=== PATIENT | male | born 1975 | race Caucasian/White ===

== ENCOUNTER 2019-01-31 03:44 | Inpatient (IN) | payer MEDICAID ==
[~2019-01-31] VITALS: Ht 172.7 cm; Wt 85.4 kg
[2019-01-31] VITALS (9 sets, daily range): BP systolic 94–143; BP diastolic 46–87
[2019-01-31] MEDS: normal saline 1000ml 1,000 ML IV SCH ×2 (01:30→10:13)
--- NOTE | 2019-01-31 04:00 | NUR ---
Received report from ED at [facility] nurse, EMILY Hanks. Reports that pt is a 43 year old Male who reported to ED with 10/10 substernal CP. Reports that patient received Zofran and Aspirin 325mg from the EMS and Zofran and Fentanyl in the ED. He was put on a Nitro drip and titrated to 75 mcg. Reports that Troponins done at 2058=0.18, 0115=0.83. He reports past medical hx includes: Hypothyroidism, Blood clots x3 to the Right leg and MN x2, 3 years ago and 5 years ago. Reports that patient has MAKAYLA peripheral IV, both 18G and in the Right AC and L AC. He reports that patient denies ETOH and street drugs but tested positive for THC and opiates but that the toxicology was completed after pt was administered Fentanyl. Reports that VS are stable at 101/60 and HR at 56.
--- NOTE | 2019-01-31 04:30 | NUR ---
Received a phone call from EMILY Ross from ED that the patient was enroute with EMS.
--- NOTE | 2019-01-31 05:05 | NUR ---
Patient arrived to the unit at 0505. Patient is in stable condition with BP of 105/60, HR WNL at 70. Patient is alert and oriented x4, and able to give detailed past medical history. He denies any family hx of cardiac problems with the exception of his Grandfather. Patient denies etoh or drug abuse but admits smoking since high school, quit 2 years ago. Patient reports that he is still nauseated and has 3-4/10 CP. Patient arrives of 75 mcg/min of Nitroglycerin drip. Assessment completed. Patient has strong peripheral pulses and brisk capillary refill this includes radial and pedal pulses. Lung sounds are clear and S1S2 heart sounds. NO skin problems. Patient reports no problems with urination and reports last BM on 01/30/2019. Patient admitted by Dr. Griffin. Will continue to monitor patient for duration of shift.
[2019-01-31] MEDS ORDERED: RIVA10TA PO ×2 (05:18→12:15)
[2019-01-31] MEDS ORDERED: LEVO50TA PO (05:21)
[2019-01-31] MEDS ORDERED: SYN0.088T PO (05:21)
[2019-01-31] MEDS ORDERED: acetaminophen 325mg tablet PO PRN ×2 (05:30→05:35)
[2019-01-31] MEDS ORDERED: normal saline 1000ml 1,000 ML IV SCH (05:34)
[2019-01-31] MEDS ORDERED: ondansetron/PF 4mg/2ml inj IV PRN (05:35)
[2019-01-31] MEDS ORDERED: heparin 10,000 units/1 ML INJ IV ONE (05:35)
[2019-01-31] MEDS ORDERED: morphine 2 MG/ML inj. syringe IV PRN ×2 (05:35)
[2019-01-31] MEDS ORDERED: heparin 10,000 units/1 ML INJ IV PRN (05:35)
[2019-01-31] MEDS ORDERED: HYDROcodone/acetaminophen 5mg/325mg tablet PO PRN (05:35)
[2019-01-31] MEDS ORDERED: magnesium hydroxide 30ml (MOM) UD suspension PO PRN (05:35)
[2019-01-31] MEDS ORDERED: nitroGLYCERIN 0.4mg SUBLingual tab SL PRN (05:35)
[2019-01-31] MEDS ORDERED: mag hydrox/Alum hydrox/simeth 30ml oral suspension PO PRN (05:35)
--- NOTE | 2019-01-31 06:00 | NUR ---
Problems reprioritized. Patient report given, questions answered & plan of care reviewed with EMILY Balbuena.
[2019-01-31 06:29] LABS: BASOPHILS % (AUTO) 0.6 % (0-1); EOSINOPHILS # (AUTO) 0.2 X10'3 (0-0.9); EOSINOPHILS % (AUTO) 2.1 % (0-6); HEMATOCRIT 36.7 % (42.0-52.0); HEMOGLOBIN 12.4 g/dl (14.0-17.9); LYMPHOCYTES # (AUTO) 2.4 X10'3 (1.1-4.8); LYMPHOCYTES % (AUTO) 29.6 % (21-51); MEAN CORPUSCULAR HEMOGLOBIN 30.7 PG (27.0-31.0); MEAN CORPUSCULAR HGB CONC 33.7 g/dL (33.0-36.5); MEAN PLATELET VOLUME 8.1 FL (7.4-10.4); MONOCYTES # (AUTO) 0.5 X10'3 (0-0.9); NEUTROPHILS # (AUTO) 5.1 X10'3 (1.8-7.7); NEUTROPHILS % (AUTO) 61.7 % (42-75); PLATELET COUNT 184 X10'3 (140-440); RED BLOOD COUNT 4.03 X10'6 (4.70-6.10); RED CELL DISTRIBUTION WIDTH 13.6 % (11.5-14.5); WHITE BLOOD COUNT 8.2 X10'3 (4.5-11.0)
[2019-01-31] MEDS ORDERED: nitroGLYCERIN-Tridil 50MG/D5W 250 ML IV SCH (06:50)
[2019-01-31 07:01] LABS: INR 1.1 INR; PARTIAL THROMBOPLASTIN TIME 25 SECONDS (22-32)
[2019-01-31] MEDS: aspirin 81mg tablet.DR PO SCH (07:20)
[2019-01-31] MEDS: atorvastatin 10mg tablet PO SCH (07:20)
[2019-01-31] MEDS: heparin 25,000 UNIT/250ml bag 250 ML IV SCH ×2 (07:24→14:50)
[2019-01-31 07:25] LABS: MAGNESIUM 2.3 MG/DL (1.5-2.4); PHOSPHORUS 3.2 MG/DL (2.3-4.5)
[2019-01-31 07:32] LABS: TROPONIN I 3.73 NG/ML (0.0-0.05)
[2019-01-31] MEDS ORDERED: metoprolol tartrate 25mg tablet PO SCH (08:00)
--- NOTE | 2019-01-31 08:27 | NUR ---
PAGER ID: [phone] MESSAGE: [phone]-[phone]. B/P up to after 250 bolus. Sree DIAZ [phone]
[2019-01-31] MEDS: tirofiban 5mg in NS 100mL 100 ML IV SCH ×3 (08:36→20:25)
[2019-01-31 09:24] LABS: ALANINE AMINOTRANSFERASE 26 U/L (12-78); ALBUMIN 3.4 G/DL (3.4-5.0); ALBUMIN/GLOBULIN RATIO 1.2 (1.1-1.5); ALKALINE PHOSPHATASE 62 IU/L (46-116); ANION GAP 6 (8-16); ASPARTATE AMINO TRANSFERASE 35 U/L (10-37); BILIRUBIN,TOTAL 1.1 MG/DL (0.1-1.0); BLOOD UREA NITROGEN 13 MG/DL (7-18); CALCIUM 8.7 MG/DL (8.5-10.1); CHLORIDE 106 MMOL/L (99-107); GLUCOSE 90 MG/DL (70-104); POTASSIUM 3.8 MMOL/L (3.5-5.1); SODIUM 139 MMOL/L (135-145); TOTAL CARBON DIOXIDE 27.3 MMOL/L (24-32); TOTAL PROTEIN 6.3 G/DL (6.4-8.2); eGFR 82 ML/MIN
--- NOTE | 2019-01-31 14:31 | NUR ---
PAGER ID: [phone] MESSAGE: Kathy Morel is up to 7.69. Sree DIAZ [phone]
[2019-01-31] MEDS ORDERED: midazolam 2 mg/2 ml injection ONE ×2 (15:28→16:10)
[2019-01-31] MEDS ORDERED: fentaNYL/PF 50MCG/1 ML 2ML syringe ONE ×2 (15:28→16:16)
[2019-01-31] MEDS ORDERED: LIDOcaine 1% (10mg/ml)w/preservative injection 20ml MDV ONE (15:28)
[2019-01-31] MEDS ORDERED: iohexol 350MG/ML 100ml bottle IV ONE ×2 (15:28→16:25)
--- NOTE | 2019-01-31 15:45 | NUR ---
pt. headed to cathlab
[2019-01-31] MEDS ORDERED: heparin 1,000unit/ml 10ml vial 10 ML ONE (16:20)
[2019-01-31] MEDS ORDERED: proCHLORperazine 10 MG/2 ml inj ONE (16:20)
[2019-01-31] MEDS ORDERED: ticagrelor 90mg tablet ONE (16:26)
--- NOTE | 2019-01-31 17:00 | NUR ---
Pt. back from cathlab. Right groin site looks good. Pt. does not have any complaints. Orders faxed.
[2019-01-31] MEDS ORDERED: HYDROcodone/acetaminophen 10/325mg tab PO PRN (17:30)
[2019-01-31] MEDS ORDERED: proCHLORperazine 10 MG/2 ml inj IV PRN (17:30)
--- NOTE | 2019-01-31 18:00 | NUR ---
Patient in room MED 308. I have received report from EMILY Balbuena and had the opportunity to ask questions and assume patient care.
--- NOTE | 2019-01-31 18:21 | NUR ---
Problems reprioritized. Patient report given, questions answered & plan of care reviewed with Judith DIAZ.
[2019-01-31 18:22] LABS: BASOPHILS # (AUTO) 0.1 X10'3 (0-0.2); BASOPHILS % (AUTO) 0.7 % (0-1); EOSINOPHILS # (AUTO) 0.3 X10'3 (0-0.9); EOSINOPHILS % (AUTO) 4.2 % (0-6); HEMATOCRIT 36.7 % (42.0-52.0); HEMOGLOBIN 12.5 g/dl (14.0-17.9); LYMPHOCYTES # (AUTO) 2.7 X10'3 (1.1-4.8); LYMPHOCYTES % (AUTO) 35.3 % (21-51); MEAN CORPUSCULAR HEMOGLOBIN 30.7 PG (27.0-31.0); MEAN CORPUSCULAR VOLUME 90.2 FL (78-98); MEAN PLATELET VOLUME 8.2 FL (7.4-10.4); MONOCYTES # (AUTO) 0.5 X10'3 (0-0.9); MONOCYTES % (AUTO) 6.8 % (2-12); NEUTROPHILS # (AUTO) 4.1 X10'3 (1.8-7.7); PLATELET COUNT 201 X10'3 (140-440); RED BLOOD COUNT 4.07 X10'6 (4.70-6.10); RED CELL DISTRIBUTION WIDTH 13.4 % (11.5-14.5); WHITE BLOOD COUNT 7.7 X10'3 (4.5-11.0)
--- NOTE | 2019-01-31 22:30 | NUR ---
Patient removed blood pressure cuff prior to completion of post op vitals. Vitals have remained stable.
[2019-02-01 00:15] VITALS: BP 94/58
[2019-02-01 02:00] VITALS: BP 116/80
--- NOTE | 2019-02-01 02:38 | NUR ---
Aggrastat drip d/c at 0230 per orders.
[2019-02-01] MEDS: tirofiban 5mg in NS 100mL 100 ML IV SCH ×2 (03:31→10:08)
[2019-02-01 05:30] LABS: BASOPHILS # (AUTO) 0.1 X10'3 (0-0.2); BASOPHILS % (AUTO) 0.8 % (0-1); EOSINOPHILS # (AUTO) 0.4 X10'3 (0-0.9); EOSINOPHILS % (AUTO) 4.8 % (0-6); LYMPHOCYTES # (AUTO) 2.6 X10'3 (1.1-4.8); LYMPHOCYTES % (AUTO) 32.9 % (21-51); MEAN CORPUSCULAR HEMOGLOBIN 30.8 PG (27.0-31.0); MEAN CORPUSCULAR HGB CONC 33.4 g/dL (33.0-36.5); MEAN PLATELET VOLUME 8.6 FL (7.4-10.4); MONOCYTES # (AUTO) 0.5 X10'3 (0-0.9); MONOCYTES % (AUTO) 6.3 % (2-12); NEUTROPHILS # (AUTO) 4.3 X10'3 (1.8-7.7); NEUTROPHILS % (AUTO) 55.2 % (42-75); PLATELET COUNT 201 X10'3 (140-440); RED BLOOD COUNT 4.23 X10'6 (4.70-6.10); RED CELL DISTRIBUTION WIDTH 13.9 % (11.5-14.5); WHITE BLOOD COUNT 7.9 X10'3 (4.5-11.0)
[2019-02-01] MEDS ORDERED: Potassium Cl inj 20 MEQ in normal saline 1000ml 1,000 ML IV SCH (05:34)
[2019-02-01 05:44] LABS: ALANINE AMINOTRANSFERASE 24 U/L (12-78); ALBUMIN 3.2 G/DL (3.4-5.0); ALKALINE PHOSPHATASE 64 IU/L (46-116); ANION GAP 8 (8-16); ASPARTATE AMINO TRANSFERASE 30 U/L (10-37); BLOOD UREA NITROGEN 12 MG/DL (7-18); BUN/CREATININE RATIO 11.4 (5.4-32.0); CALCIUM 8.6 MG/DL (8.5-10.1); CHLORIDE 107 MMOL/L (99-107); CHOL/HDL RATIO 4.4 (0.00-4.99); CHOLESTEROL 160 MG/DL (0-200); CREATININE 1.05 MG/DL (0.60-1.10); GLUCOSE 90 MG/DL (70-104); HDL CHOLESTEROL 36 MG/DL (35-60); LDL CHOLESTEROL 109 MG/DL (50-100); POTASSIUM 4.1 MMOL/L (3.5-5.1); SODIUM 140 MMOL/L (135-145); TOTAL CARBON DIOXIDE 24.9 MMOL/L (24-32); TOTAL PROTEIN 6.3 G/DL (6.4-8.2); TRIGLYCERIDES 89 MG/DL (20-135); eGFR 77 ML/MIN
[2019-02-01 06:00] VITALS: BP 120/84
--- NOTE | 2019-02-01 06:00 | NUR ---
Problems reprioritized. Patient report given, questions answered & plan of care reviewed with EMILY Henning.
[2019-02-01] MEDS: normal saline 1000ml 1,000 ML IV SCH (06:05)
[2019-02-01] MEDS: aspirin 81mg tablet.DR PO SCH (07:09)
[2019-02-01] MEDS: atorvastatin 10mg tablet PO SCH (07:10)
[2019-02-01] MEDS ORDERED: levoTHYROXINE 88mcg tablet PO SCH (07:30)
[2019-02-01] MEDS ORDERED: ticagrelor 90mg tablet PO SCH (08:00)
--- NOTE | 2019-02-01 10:26 | NUR ---
Paged Dr. Gil patient has a ride home "Re: Julius Copeland in 308. patient says he has a ride home whenever you put the order in. thank you, Milady BONNER [phone]"
[2019-02-01 11:00] VITALS: BP 136/78
[2019-02-01] MEDS ORDERED: TICA90TA PO (11:06)
[2019-02-01] MEDS ORDERED: RIVA20TA PO (11:06)
[2019-02-01] MEDS ORDERED: NITR0.4T51 SL (11:06)
[2019-02-01] MEDS ORDERED: ATOR20TA66 PO (11:06)
[2019-02-01] MEDS ORDERED: LISI2.5T2 PO (11:06)
[2019-02-01] MEDS ORDERED: ASPI-1071 PO (11:06)
[2019-02-01] MEDS ORDERED: lisinopril 2.5mg tablet PO SCH (11:10)
--- NOTE | 2019-02-01 11:30 | NUR ---
PROVIDED PATIENT WITH DISCHARGE INSTRUCTIONS WELL NEW PRESCRIPTION INFORMATION AND DIRECTIONS. PATIENT AWARE THAT HE NEEDS TO SCHEDULE A FOLLOW UP APPOINTMENT WITH DR. PIERRE WITHIN A WEEK AND THAT HE WILL CONTINUE ASPIRIN, BRILINTA, AND XARELTO FOR ONE MONTH THEN STOP ASPIRIN AND ONLY CONTINUE TO TAKE BRILINTA AND XARELTO. HE IS AWARE HE SHOULD NOT MISS DOSES OF MEDICATION UNLESS DIRECTED TO DO SO BY DR. PIERRE. IV REMOVED, CATHETER INTACT WITH MINIMAL BLEEDING PRESSURE HELD AT SITE CLEAN GAUZE APPLIED AND SECURED WITH TAPE. PATIENT AWAITING HIS RIDE TO GO HOME. ALL PRESCRIPTIONS CALLED INTO [facility]. PATIENT AMBULATED DOWNSTAIRS TO GO HOME VIA PRIVATE VEHICLE ALL BELONGINGS IN HAND INCLUDING COUPON FOR BRILINTA AND STENT ID CARD.
[2019-02-01 11:56] VITALS: BP_SYST 136
== END 2019-02-01 12:06 | disposition home or self-care (01) | DRG 174 ==
LOC: MED 3N 04:59
PROVIDERS: ADMIT Internal Medicine; ATTEND Internal Medicine
PROC: 4A023N7 Measurement of Cardiac Sampling and Pressure, Left Heart, Percutaneous Approach (ICD-10-PCS; principal; 2019-01-31)
PROC: 027034Z Dilation of Coronary Artery, One Artery with Drug-eluting Intraluminal Device, Percutaneous Approach (ICD-10-PCS; 2019-01-31)
PROC: B2111ZZ Fluoroscopy of Multiple Coronary Arteries using Low Osmolar Contrast (ICD-10-PCS; 2019-01-31)
PROC: B2151ZZ Fluoroscopy of Left Heart using Low Osmolar Contrast (ICD-10-PCS; 2019-01-31)
PROC: B41F1ZZ Fluoroscopy of Right Lower Extremity Arteries using Low Osmolar Contrast (ICD-10-PCS; 2019-01-31)
DX: I21.4 Non-ST elevation (NSTEMI) myocardial infarction (principal); E03.9 Hypothyroidism, unspecified; E78.5 Hyperlipidemia, unspecified; F12.90 Cannabis use, unspecified, uncomplicated; I25.10 Atherosclerotic heart disease of native coronary artery without angina pectoris; I95.2 Hypotension due to drugs; T46.3X5A Adverse effect of coronary vasodilators, initial encounter; T44.7X5A Adverse effect of beta-adrenoreceptor antagonists, initial encounter; R00.1 Bradycardia, unspecified; I25.2 Old myocardial infarction; Z79.82 Long term (current) use of aspirin; Z79.899 Other long term (current) drug therapy; Z79.01 Long term (current) use of anticoagulants; Z87.891 Personal history of nicotine dependence; Z86.718 Personal history of other venous thrombosis and embolism; Z82.49 Family history of ischemic heart disease and other diseases of the circulatory system; Y92.238 Other place in hospital as the place of occurrence of the external cause
CPT/HCPCS: 36415; 80053; 80061; 83735; 84100; 84484; 85025; 85610; 85730; 87070; 93005; 93306; 93458; 99152; 99153; A6257; C1769; C1874; C9606; G0378; J0780; J1644; J2001; J2250; J3010; J3246; J3480; J7030; Q9967

== ENCOUNTER 2021-10-02 16:38 | Inpatient (IN) | payer MEDICAID ==
[~2021-10-02] VITALS: Ht 172.7 cm; Wt 93.2 kg
[~2021-10-02 16:38] MED LIST: ASPI-1071 PO; ATOR20TA66 PO; LEVO50TA PO; LISI2.5T14 PO; NITR0.4T51 SL; RIVA20TA PO; TICA90TA PO
--- NOTE | 2021-10-02 16:54 | NUR ---
PT TRANSFER FROM [facility] REPORT RECIVED FROM EMS
[2021-10-02] MEDS ORDERED: magnesium 4gm in 100ml NS 100 ML IV PRN (17:40)
[2021-10-02] MEDS ORDERED: magnesium 2GM in 50ml NS 50 ML IV PRN (17:40)
[2021-10-02] MEDS: normal saline 1000ml 1,000 ML IV SCH (17:40)
[2021-10-02] MEDS ORDERED: magnesium Cl slow-release 64mg tablet PO PRN (17:40)
[2021-10-02] MEDS ORDERED: potassium CL 10mEq/100ml bag 100 ML IV PRN (17:40)
[2021-10-02] MEDS ORDERED: ondansetron/PF 4mg/2ml inj IV PRN (17:40)
[2021-10-02] MEDS ORDERED: acetaminophen 325mg tablet PO PRN (17:40)
[2021-10-02] MEDS ORDERED: potassium Cl 20 mEq SR tablet PO PRN ×2 (17:40)
[2021-10-02] MEDS ORDERED: heparin 10,000 units/1 ML INJ IV ONE (17:45)
[2021-10-02] MEDS: morphine 2 MG/ML inj. syringe IV PRN ×3 (17:51→22:39)
[2021-10-02] MEDS: heparin 25,000 UNIT/250ml bag 250 ML IV SCH (18:00)
[2021-10-02] MEDS ORDERED: RIVA20TA PO (18:04)
[2021-10-02 18:22] LABS: ALANINE AMINOTRANSFERASE 36 U/L (12-78); ALBUMIN 3.6 G/DL (3.4-5.0); ALKALINE PHOSPHATASE 77 IU/L (46-116); ANION GAP 12 (8-16); ASPARTATE AMINO TRANSFERASE 33 U/L (10-37); BILIRUBIN,TOTAL 0.5 MG/DL (0.1-1.0); BLOOD UREA NITROGEN 25 MG/DL (7-18); BUN/CREATININE RATIO 23.6 (5.4-32.0); CALCIUM 8.5 MG/DL (8.5-10.1); CHLORIDE 104 MMOL/L (99-107); CREATININE 1.06 MG/DL (0.60-1.10); GLUCOSE 115 MG/DL (70-104); MAGNESIUM 2.2 MG/DL (1.5-2.4); POTASSIUM 4.2 MMOL/L (3.5-5.1); SODIUM 140 MMOL/L (135-145); TOTAL CARBON DIOXIDE 23.7 MMOL/L (24-32); TOTAL PROTEIN 7.3 G/DL (6.4-8.2); eGFR 75 ML/MIN
[2021-10-02 18:23] LABS: BASOPHILS # (AUTO) 0.1 X10'3 (0-0.2); BASOPHILS % (AUTO) 0.7 % (0-1); EOSINOPHILS # (AUTO) 0.4 X10'3 (0-0.9); EOSINOPHILS % (AUTO) 4.6 % (0-6); HEMATOCRIT 39.8 % (42.0-52.0); HEMOGLOBIN 13.7 g/dl (14.0-17.9); LYMPHOCYTES # (AUTO) 2.9 X10'3 (1.1-4.8); LYMPHOCYTES % (AUTO) 37.2 % (21-51); MEAN CORPUSCULAR HEMOGLOBIN 30.9 PG (27.0-31.0); MEAN CORPUSCULAR HGB CONC 34.3 g/dL (33.0-36.5); MEAN CORPUSCULAR VOLUME 90.1 FL (78-98); MEAN PLATELET VOLUME 9.1 FL (7.4-10.4); MONOCYTES # (AUTO) 0.4 X10'3 (0-0.9); NEUTROPHILS # (AUTO) 4.2 X10'3 (1.8-7.7); NEUTROPHILS % (AUTO) 52.5 % (42-75); PLATELET COUNT 271 X10'3 (140-440); RED BLOOD COUNT 4.42 X10'6 (4.70-6.10); RED CELL DISTRIBUTION WIDTH 13.8 % (11.5-14.5); WHITE BLOOD COUNT 7.9 X10'3 (4.5-11.0)
[2021-10-02] MEDS: K and/or MAG REPLACEMENT MC SCH (20:00)
[2021-10-02 22:30] VITALS: BP 137/64
--- NOTE | 2021-10-03 00:03 | NUR ---
Patient's Cardiac PTT resulted at 57, therapeutic range. Will do continue with rate of 1200U/hr. Will order aTTP for 05:30.
--- NOTE | 2021-10-03 06:30 | NUR ---
Patient in room MED 315. I have received and had the opportunity to ask questions and assume patient care.
[2021-10-03 06:42] LABS: BASOPHILS % (AUTO) 0.6 % (0-1); EOSINOPHILS # (AUTO) 0.4 X10'3 (0-0.9); EOSINOPHILS % (AUTO) 4.4 % (0-6); HEMATOCRIT 39.1 % (42.0-52.0); HEMOGLOBIN 13.3 g/dl (14.0-17.9); LYMPHOCYTES # (AUTO) 2.2 X10'3 (1.1-4.8); LYMPHOCYTES % (AUTO) 25.7 % (21-51); MEAN CORPUSCULAR HGB CONC 33.9 g/dL (33.0-36.5); MEAN CORPUSCULAR VOLUME 91.4 FL (78-98); MEAN PLATELET VOLUME 8.7 FL (7.4-10.4); MONOCYTES # (AUTO) 0.6 X10'3 (0-0.9); MONOCYTES % (AUTO) 7.1 % (2-12); NEUTROPHILS # (AUTO) 5.4 X10'3 (1.8-7.7); NEUTROPHILS % (AUTO) 62.2 % (42-75); PLATELET COUNT 234 X10'3 (140-440); RED BLOOD COUNT 4.28 X10'6 (4.70-6.10); RED CELL DISTRIBUTION WIDTH 13.8 % (11.5-14.5); WHITE BLOOD COUNT 8.6 X10'3 (4.5-11.0)
[2021-10-03 06:55] LABS: ALBUMIN 3.3 G/DL (3.4-5.0); ANION GAP 8 (8-16); BLOOD UREA NITROGEN 19 MG/DL (7-18); BUN/CREATININE RATIO 18.3 (5.4-32.0); CALCIUM 8.9 MG/DL (8.5-10.1); CHLORIDE 104 MMOL/L (99-107); CHOL/HDL RATIO 6.5 (0.00-4.99); CHOLESTEROL 221 MG/DL (0-200); CREATININE 1.04 MG/DL (0.60-1.10); GLUCOSE 100 MG/DL (70-104); HDL CHOLESTEROL 34 MG/DL (35-60); LDL CHOLESTEROL 141 MG/DL (50-100); MAGNESIUM 2.3 MG/DL (1.5-2.4); POTASSIUM 3.8 MMOL/L (3.5-5.1); SODIUM 136 MMOL/L (135-145); TOTAL CARBON DIOXIDE 24.2 MMOL/L (24-32); TRIGLYCERIDES 199 MG/DL (20-135); eGFR 77 ML/MIN
[2021-10-03] MEDS: heparin 10,000 units/1 ML INJ IV PRN ×2 (07:21→23:41)
[2021-10-03] MEDS: morphine 2 MG/ML inj. syringe IV PRN ×2 (07:33→13:46)
[2021-10-03] MEDS: K and/or MAG REPLACEMENT MC SCH ×2 (08:00→19:34)
[2021-10-03] MEDS ORDERED: LEVO75TA7 PO (09:04)
[2021-10-03] MEDS ORDERED: ATOR40TA72 PO (09:04)
[2021-10-03 11:30] VITALS: BP 97/58
[2021-10-03] MEDS: HYDROcodone/acetaminophen 5mg/325mg tablet PO PRN (14:58)
[2021-10-03 15:00] VITALS: BP 117/77
[2021-10-03] MEDS: heparin 25,000 UNIT/250ml bag 250 ML IV SCH (16:11)
--- NOTE | 2021-10-03 18:45 | NUR ---
Problems reprioritized. Patient report given, questions answered & plan of care reviewed with PONCHO Marquez.
[2021-10-03 22:00] VITALS: BP 100/60
[2021-10-04] MEDS: morphine 2 MG/ML inj. syringe IV PRN ×3 (02:31→17:15)
[2021-10-04 06:00] VITALS: BP 121/82
[2021-10-04 07:47] LABS: BASOPHILS # (AUTO) 0.1 X10'3 (0-0.2); EOSINOPHILS # (AUTO) 0.5 X10'3 (0-0.9); EOSINOPHILS % (AUTO) 6.1 % (0-6); HEMATOCRIT 39.2 % (42.0-52.0); HEMOGLOBIN 13.3 g/dl (14.0-17.9); LYMPHOCYTES # (AUTO) 2.6 X10'3 (1.1-4.8); LYMPHOCYTES % (AUTO) 35.1 % (21-51); MEAN CORPUSCULAR HEMOGLOBIN 30.9 PG (27.0-31.0); MEAN PLATELET VOLUME 8.4 FL (7.4-10.4); MONOCYTES # (AUTO) 0.5 X10'3 (0-0.9); MONOCYTES % (AUTO) 6.1 % (2-12); NEUTROPHILS # (AUTO) 3.8 X10'3 (1.8-7.7); NEUTROPHILS % (AUTO) 51.7 % (42-75); PLATELET COUNT 254 X10'3 (140-440); RED BLOOD COUNT 4.31 X10'6 (4.70-6.10); RED CELL DISTRIBUTION WIDTH 13.9 % (11.5-14.5); WHITE BLOOD COUNT 7.4 X10'3 (4.5-11.0)
[2021-10-04] MEDS: levoTHYROXINE 75mcg tablet PO SCH (07:51)
[2021-10-04] MEDS: aspirin 81mg, enteric-coated 1 TAB TABLET.DR PO SCH (07:52)
[2021-10-04] MEDS: K and/or MAG REPLACEMENT MC SCH ×2 (08:00→20:00)
[2021-10-04 08:13] LABS: ALBUMIN 3.3 G/DL (3.4-5.0); ANION GAP 9 (8-16); BLOOD UREA NITROGEN 18 MG/DL (7-18); BUN/CREATININE RATIO 16.5 (5.4-32.0); CALCIUM 8.9 MG/DL (8.5-10.1); CHLORIDE 107 MMOL/L (99-107); CREATININE 1.09 MG/DL (0.60-1.10); GLUCOSE 92 MG/DL (70-104); MAGNESIUM 2.4 MG/DL (1.5-2.4); POTASSIUM 4.2 MMOL/L (3.5-5.1); SODIUM 141 MMOL/L (135-145); eGFR 73 ML/MIN
--- NOTE | 2021-10-04 10:05 | NUR ---
PAGER ID: [phone] MESSAGE: [id number] Julius KAMARA- states worsening chest pressure 03/21. Karmen [phone]
[2021-10-04 11:00] VITALS: BP 126/82
[2021-10-04] MEDS: isosorbide mononitrate 30mg tab.SR.24H PO SCH (11:11)
--- NOTE | 2021-10-04 11:27 | NUR ---
PAGER ID: [phone] MESSAGE: [id number] Julius Copeland- [facility] [phone]. Karmen [phone]
[2021-10-04] MEDS: heparin 25,000 UNIT/250ml bag 250 ML IV SCH ×2 (13:00→18:25)
--- NOTE | 2021-10-04 13:30 | NUR ---
PAGER ID: [phone] MESSAGE: [id number] Julius Copeland- Troponin 9395. Karmen [phone]
[2021-10-04] MEDS ORDERED: rivaroxaban 20mg tablet PO SCH (13:46)
--- NOTE | 2021-10-04 15:04 | NUR ---
PAGER ID: [phone] MESSAGE: [id number] Julius Copeland- Agreeable to stay. Karmen [phone]
[2021-10-04] MEDS: heparin 10,000 units/1 ML INJ IV PRN (17:12)
[2021-10-04] MEDS: normal saline 1000ml 1,000 ML IV SCH (17:40)
--- NOTE | 2021-10-04 17:53 | NUR ---
PAGER ID: [phone] MESSAGE: [id number] Julius Copeland- C/O increased chest pain unrelieved by morphine. No nitro on order. Karmen [phone]
--- NOTE | 2021-10-04 18:08 | NUR ---
Dr. Bedolla called back, order placed for Nitro SL
[2021-10-04] MEDS ORDERED: heparin 10,000 units/1 ML INJ IV ONE (18:25)
[2021-10-04] MEDS ORDERED: heparin 10,000 units/1 ML INJ IV PRN (18:25)
[2021-10-04 23:00] VITALS: BP 131/79
--- NOTE | 2021-10-04 23:55 | NUR ---
LM for Dr. Flood regarding critical lab value, troponin 3659, trending downward.
[2021-10-05] VITALS (14 sets, daily range): BP systolic 101–165; BP diastolic 58–89
[2021-10-05] MEDS: morphine 2 MG/ML inj. syringe IV PRN ×5 (00:22→22:28)
--- NOTE | 2021-10-05 01:43 | NUR ---
Heparin drip running at 1400U/hr at start of shift, Cardiac PTT resulted at 00:41 was 69, no hold or bolus indicated. Decreased infusion rate to 1300U/hr per protocol.
--- NOTE | 2021-10-05 07:06 | NUR ---
Patient in room MED 315. I have received report from René DIAZ and had the opportunity to ask questions and assume patient care.
[2021-10-05 07:31] LABS: BASOPHILS # (AUTO) 0.1 X10'3 (0-0.2); BASOPHILS % (AUTO) 0.8 % (0-1); EOSINOPHILS # (AUTO) 0.4 X10'3 (0-0.9); EOSINOPHILS % (AUTO) 5.6 % (0-6); HEMATOCRIT 38.5 % (42.0-52.0); HEMOGLOBIN 13.4 g/dl (14.0-17.9); LYMPHOCYTES # (AUTO) 2.6 X10'3 (1.1-4.8); LYMPHOCYTES % (AUTO) 33.1 % (21-51); MEAN CORPUSCULAR HEMOGLOBIN 31.2 PG (27.0-31.0); MEAN CORPUSCULAR HGB CONC 34.7 g/dL (33.0-36.5); MEAN CORPUSCULAR VOLUME 90.1 FL (78-98); MONOCYTES # (AUTO) 0.5 X10'3 (0-0.9); MONOCYTES % (AUTO) 5.9 % (2-12); NEUTROPHILS # (AUTO) 4.3 X10'3 (1.8-7.7); NEUTROPHILS % (AUTO) 54.6 % (42-75); PLATELET COUNT 259 X10'3 (140-440); RED BLOOD COUNT 4.28 X10'6 (4.70-6.10); RED CELL DISTRIBUTION WIDTH 13.7 % (11.5-14.5); WHITE BLOOD COUNT 7.8 X10'3 (4.5-11.0)
[2021-10-05] MEDS: aspirin 81mg, enteric-coated 1 TAB TABLET.DR PO SCH (08:00)
[2021-10-05] MEDS: K and/or MAG REPLACEMENT MC SCH ×2 (08:00→20:00)
[2021-10-05] MEDS: isosorbide mononitrate 30mg tab.SR.24H PO SCH (08:00)
[2021-10-05 08:01] LABS: ALBUMIN 3.4 G/DL (3.4-5.0); ANION GAP 11 (8-16); BLOOD UREA NITROGEN 22 MG/DL (7-18); BUN/CREATININE RATIO 20.4 (5.4-32.0); CALCIUM 8.8 MG/DL (8.5-10.1); CHLORIDE 102 MMOL/L (99-107); CREATININE 1.08 MG/DL (0.60-1.10); GLUCOSE 97 MG/DL (70-104); MAGNESIUM 2.3 MG/DL (1.5-2.4); POTASSIUM 4.6 MMOL/L (3.5-5.1); SODIUM 139 MMOL/L (135-145); TOTAL CARBON DIOXIDE 26.2 MMOL/L (24-32); eGFR 74 ML/MIN
[2021-10-05] MEDS ORDERED: LIDOcaine 1% (10mg/ml)w/preservative injection 20ml MDV ONE (09:19)
[2021-10-05] MEDS ORDERED: midazolam 1 mg/ML 2ml injection ONE ×3 (09:19→10:37)
[2021-10-05] MEDS ORDERED: iohexol 350 MG/ML 50ML vial IV ONE (09:19)
[2021-10-05] MEDS ORDERED: fentaNYL/PF 50MCG/1 ML 2ML syringe ONE ×3 (09:19→10:37)
[2021-10-05] MEDS ORDERED: iohexol 350MG/ML 100ml bottle IV ONE ×3 (09:19→22:21)
[2021-10-05] MEDS ORDERED: nitroGLYCERIN 0.4mg/hour patch TD ONE (09:30)
[2021-10-05] MEDS ORDERED: diphenhydrAMINE 50 mg/ml inj ONE (10:07)
[2021-10-05] MEDS ORDERED: tirofiban 5mg in NS 100mL 100 ML IV ONE (10:27)
[2021-10-05] MEDS ORDERED: ticagrelor 90mg tablet ONE (10:54)
--- NOTE | 2021-10-05 11:20 | NUR ---
Patient will be going to room. 2013 after procedure. All person items collected to sent to room.
[2021-10-05] MEDS: nitroGLYCERIN 0.4mg SUBLingual tab SL PRN ×2 (11:40→12:17)
[2021-10-05] MEDS: HYDROcodone/acetaminophen 5mg/325mg tablet PO PRN ×2 (11:41→18:55)
--- NOTE | 2021-10-05 11:45 | NUR ---
Patient in room CICU 2013. I have received report from Saba DIAZ (laborer [employer]) and had the opportunity to ask questions and assume patient care. Pt complaining of chest pain that radiates to left arm. Pt on monitor and IVs continue.
[2021-10-05] MEDS: tirofiban 5mg in NS 100mL 100 ML IV SCH ×2 (12:17→18:18)
[2021-10-05] MEDS: dexmedetomidin/NS 400mcg/100ml 100 ML IV PRN ×2 (12:18→18:55)
--- NOTE | 2021-10-05 13:03 | NUR ---
MD Visit Dr. Hickey to see pt. Orders received.
[2021-10-05] MEDS: levoTHYROXINE 75mcg tablet PO SCH (15:00)
[2021-10-05] MEDS: normal saline 1000ml 1,000 ML IV SCH (17:49)
--- NOTE | 2021-10-05 18:11 | NUR ---
Problems reprioritized. Patient report given, questions answered & plan of care reviewed with Donal RN Examined pts groin site. CN recommneded 4x4s and then a small pressure bag for oozing. Checked site with Donal and only minor oozing at site. .
--- NOTE | 2021-10-05 19:08 | NUR ---
Patient in room CICU 2013. I have received report from Lizz DIAZ and had the opportunity to ask questions and assume patient care.
[2021-10-05] MEDS: heparin 25,000 UNIT/250ml bag 250 ML IV SCH (19:13)
--- NOTE | 2021-10-05 19:30 | NUR ---
Educated patient on the importance of not moving left leg due to sheath. Patient verablizes understanding but continues to move and adjust position on his own. Femoral Sheath continues to ooze. Dressing reinforced.
--- NOTE | 2021-10-05 21:30 | NUR ---
Continue to educate patient on the importance of not moving left leg due to sheath. Patient continues to adjust himself in the bed and moving left leg.
--- NOTE | 2021-10-05 21:45 | NUR ---
Patient complaining of severe back pain and distended abdomen. Femoral site continues to ooze and changing 4x4s frequently. Notified Dr Blake. New orders received.
[2021-10-05] MEDS ORDERED: ticagrelor 90mg tablet PO ONE (22:00)
[2021-10-05] MEDS: ALPRAZolam 0.5mg tablet PO PRN (22:14)
[2021-10-05 22:30] LABS: BASOPHILS % (AUTO) 0.3 % (0-1); EOSINOPHILS # (AUTO) 0.3 X10'3 (0-0.9); EOSINOPHILS % (AUTO) 3.9 % (0-6); HEMATOCRIT 35.4 % (42.0-52.0); HEMOGLOBIN 12.3 g/dl (14.0-17.9); LYMPHOCYTES % (AUTO) 24.1 % (21-51); MEAN CORPUSCULAR HGB CONC 34.8 g/dL (33.0-36.5); MEAN CORPUSCULAR VOLUME 89.1 FL (78-98); MEAN PLATELET VOLUME 8.2 FL (7.4-10.4); MONOCYTES # (AUTO) 0.4 X10'3 (0-0.9); MONOCYTES % (AUTO) 4.6 % (2-12); NEUTROPHILS # (AUTO) 5.5 X10'3 (1.8-7.7); NEUTROPHILS % (AUTO) 67.1 % (42-75); PLATELET COUNT 252 X10'3 (140-440); RED BLOOD COUNT 3.98 X10'6 (4.70-6.10); RED CELL DISTRIBUTION WIDTH 13.7 % (11.5-14.5); WHITE BLOOD COUNT 8.2 X10'3 (4.5-11.0)
[2021-10-06] VITALS (23 sets, daily range): BP systolic 88–140; BP diastolic 43–92
[2021-10-06] MEDS: tirofiban 5mg in NS 100mL 100 ML IV SCH (00:06)
[2021-10-06] MEDS: morphine 2 MG/ML inj. syringe IV PRN ×7 (00:57→22:41)
[2021-10-06] MEDS: dexmedetomidin/NS 400mcg/100ml 100 ML IV PRN (03:49)
[2021-10-06] MEDS: HYDROcodone/acetaminophen 5mg/325mg tablet PO PRN ×2 (03:53→09:37)
[2021-10-06 04:11] LABS: BASOPHILS % (AUTO) 0.4 % (0-1); EOSINOPHILS # (AUTO) 0.2 X10'3 (0-0.9); EOSINOPHILS % (AUTO) 3.1 % (0-6); HEMATOCRIT 36.8 % (42.0-52.0); HEMOGLOBIN 12.4 g/dl (14.0-17.9); LYMPHOCYTES # (AUTO) 1.6 X10'3 (1.1-4.8); LYMPHOCYTES % (AUTO) 20.5 % (21-51); MEAN CORPUSCULAR HEMOGLOBIN 30.5 PG (27.0-31.0); MEAN CORPUSCULAR HGB CONC 33.7 g/dL (33.0-36.5); MEAN CORPUSCULAR VOLUME 90.7 FL (78-98); MEAN PLATELET VOLUME 8.3 FL (7.4-10.4); MONOCYTES # (AUTO) 0.4 X10'3 (0-0.9); MONOCYTES % (AUTO) 4.9 % (2-12); NEUTROPHILS # (AUTO) 5.5 X10'3 (1.8-7.7); NEUTROPHILS % (AUTO) 71.1 % (42-75); PLATELET COUNT 256 X10'3 (140-440); RED BLOOD COUNT 4.05 X10'6 (4.70-6.10); RED CELL DISTRIBUTION WIDTH 13.6 % (11.5-14.5); WHITE BLOOD COUNT 7.8 X10'3 (4.5-11.0)
[2021-10-06 04:13] LABS: ALBUMIN 3.1 G/DL (3.4-5.0); ANION GAP 12 (8-16); BLOOD UREA NITROGEN 23 MG/DL (7-18); BUN/CREATININE RATIO 21.5 (5.4-32.0); CALCIUM 8.6 MG/DL (8.5-10.1); CHLORIDE 104 MMOL/L (99-107); CREATININE 1.07 MG/DL (0.60-1.10); GLUCOSE 108 MG/DL (70-104); MAGNESIUM 2.3 MG/DL (1.5-2.4); POTASSIUM 4.4 MMOL/L (3.5-5.1); SODIUM 139 MMOL/L (135-145); TOTAL CARBON DIOXIDE 23.3 MMOL/L (24-32); eGFR 74 ML/MIN
--- NOTE | 2021-10-06 06:23 | NUR ---
Problems reprioritized. Patient report given, questions answered & plan of care reviewed with June DIAZ.
--- NOTE | 2021-10-06 06:24 | NUR ---
Problems reprioritized. Patient report given, questions answered & plan of care reviewed with Anusha DIAZ.
[2021-10-06] MEDS: levoTHYROXINE 75mcg tablet PO SCH (07:00)
[2021-10-06] MEDS: K and/or MAG REPLACEMENT MC SCH ×2 (08:00→19:20)
[2021-10-06] MEDS: aspirin 81mg, enteric-coated 1 TAB TABLET.DR PO SCH ×2 (08:00→09:15)
[2021-10-06] MEDS: isosorbide mononitrate 30mg tab.SR.24H PO SCH (08:00)
[2021-10-06] MEDS ORDERED: simethicone 80mg chew tab PO ONE (08:35)
--- NOTE | 2021-10-06 08:39 | NUR ---
Initial: Pt transferred from previous facility w/ increasing chest pain and NSTEMI per EMR. Pt currently on Heart Healthy diet w/ mostly 100% intake of meals meeting needs at this time. Per nursing note, pt sometimes complains of abd distention, LBM 10/04 w/ no bowel care. No nutrition intervention implemented at this time, will continue to monitor. Recs: 1. Continue Heart Healthy diet as tolerated 2. Bowel care per rx 3. Scaled wt this admit, subsequent weekly wts Addendum: 10/06/21 at [address] Amended: Links added.
[2021-10-06] MEDS: ALPRAZolam 0.5mg tablet PO PRN ×2 (09:37→19:28)
[2021-10-06] MEDS: acetaminophen 325mg tablet PO SCH ×2 (14:00→19:27)
[2021-10-06] MEDS ORDERED: ticagrelor 90mg tablet PO STA (15:14)
[2021-10-06] MEDS ORDERED: bisacodyl 10mg suppository rectal RC SCH (16:00)
--- NOTE | 2021-10-06 18:51 | NUR ---
Patient in room CICU 2013. I have received report from Angelika DIAZ and had the opportunity to ask questions and assume patient care.
[2021-10-06] MEDS: ticagrelor 90mg tablet PO SCH (19:28)
[2021-10-06] MEDS: docusate sod 100mg capsule PO SCH (19:29)
--- NOTE | 2021-10-06 19:36 | NUR ---
Medications given at 1930 could not scan. Medications were given and double verified. Pt recieved colace, brilinta, xanax, morphine and nonadmin his tyenol.
[2021-10-06] MEDS: heparin 25,000 UNIT/250ml bag 250 ML IV SCH (20:13)
--- NOTE | 2021-10-06 22:16 | NUR ---
Problems reprioritized. Patient report given, questions answered & plan of care reviewed with Quinten DIAZ. Pt brought up to 3026B via wheelchair. Pt transferred to bed in no apparent distress, nurse at bedside.
[2021-10-07 02:00] VITALS: BP 107/71
[2021-10-07] MEDS: morphine 2 MG/ML inj. syringe IV PRN ×2 (02:53→03:00)
[2021-10-07] MEDS: acetaminophen 325mg tablet PO SCH ×2 (03:03→08:06)
[2021-10-07 06:00] VITALS: BP 129/79
[2021-10-07 06:07] LABS: ALBUMIN 3.3 G/DL (3.4-5.0); ANION GAP 12 (8-16); BLOOD UREA NITROGEN 20 MG/DL (7-18); BUN/CREATININE RATIO 16.9 (5.4-32.0); CALCIUM 8.8 MG/DL (8.5-10.1); CHLORIDE 103 MMOL/L (99-107); CREATININE 1.18 MG/DL (0.60-1.10); GLUCOSE 96 MG/DL (70-104); POTASSIUM 4.1 MMOL/L (3.5-5.1); SODIUM 140 MMOL/L (135-145); TOTAL CARBON DIOXIDE 25.3 MMOL/L (24-32); eGFR 66 ML/MIN
[2021-10-07 06:10] LABS: BASOPHILS % (AUTO) 0.5 % (0-1); EOSINOPHILS # (AUTO) 0.3 X10'3 (0-0.9); EOSINOPHILS % (AUTO) 3.4 % (0-6); HEMATOCRIT 36.1 % (42.0-52.0); HEMOGLOBIN 12.5 g/dl (14.0-17.9); LYMPHOCYTES # (AUTO) 2.2 X10'3 (1.1-4.8); LYMPHOCYTES % (AUTO) 24.4 % (21-51); MEAN CORPUSCULAR HEMOGLOBIN 31.1 PG (27.0-31.0); MEAN CORPUSCULAR HGB CONC 34.6 g/dL (33.0-36.5); MEAN CORPUSCULAR VOLUME 90.1 FL (78-98); MEAN PLATELET VOLUME 8.3 FL (7.4-10.4); MONOCYTES # (AUTO) 0.6 X10'3 (0-0.9); MONOCYTES % (AUTO) 6.6 % (2-12); NEUTROPHILS % (AUTO) 65.1 % (42-75); PLATELET COUNT 244 X10'3 (140-440); RED BLOOD COUNT 4.01 X10'6 (4.70-6.10); RED CELL DISTRIBUTION WIDTH 13.6 % (11.5-14.5); WHITE BLOOD COUNT 9.2 X10'3 (4.5-11.0)
[2021-10-07] MEDS: docusate sod 100mg capsule PO SCH (07:59)
[2021-10-07] MEDS: isosorbide mononitrate 30mg tab.SR.24H PO SCH (07:59)
[2021-10-07] MEDS: ticagrelor 90mg tablet PO SCH (08:00)
[2021-10-07] MEDS: aspirin 81mg, enteric-coated 1 TAB TABLET.DR PO SCH (08:00)
[2021-10-07] MEDS: levoTHYROXINE 75mcg tablet PO SCH (08:00)
[2021-10-07] MEDS: K and/or MAG REPLACEMENT MC SCH (08:00)
[2021-10-07 10:04] LABS: BASOPHILS % (AUTO) 0.5 % (0-1); EOSINOPHILS # (AUTO) 0.2 X10'3 (0-0.9); EOSINOPHILS % (AUTO) 3.2 % (0-6); HEMATOCRIT 35.5 % (42.0-52.0); HEMOGLOBIN 12.4 g/dl (14.0-17.9); MEAN CORPUSCULAR HEMOGLOBIN 31.2 PG (27.0-31.0); MEAN CORPUSCULAR HGB CONC 34.8 g/dL (33.0-36.5); MEAN CORPUSCULAR VOLUME 89.6 FL (78-98); MEAN PLATELET VOLUME 8.1 FL (7.4-10.4); MONOCYTES # (AUTO) 0.5 X10'3 (0-0.9); MONOCYTES % (AUTO) 6.6 % (2-12); NEUTROPHILS % (AUTO) 63.7 % (42-75); PLATELET COUNT 249 X10'3 (140-440); RED BLOOD COUNT 3.96 X10'6 (4.70-6.10); RED CELL DISTRIBUTION WIDTH 13.2 % (11.5-14.5); WHITE BLOOD COUNT 7.8 X10'3 (4.5-11.0)
[2021-10-07 11:00] VITALS: BP 113/71
[2021-10-07] MEDS ORDERED: ISOS30TA84 PO (13:14)
[2021-10-07] MEDS ORDERED: CARV3.12 PO (13:14)
[2021-10-07] MEDS ORDERED: NITR0.4T51 SL (13:14)
[2021-10-07] MEDS ORDERED: ASPI-1071 PO (13:14)
[2021-10-07] MEDS ORDERED: TICA90TA PO (13:14)
[2021-10-08] MEDS ORDERED: LEVO100T9 PO (10:19)
== END 2021-10-07 13:50 | disposition home or self-care (01) | DRG 174 ==
LOC: ER 16:39 → ED HOLD 17:38 → MED 3N 21:40 → CICU 2S 10-05 11:31 → PCU 3S 10-06 22:10
PROVIDERS: ADMIT Internal Medicine; ATTEND Internal Medicine
PROC: 027034Z Dilation of Coronary Artery, One Artery with Drug-eluting Intraluminal Device, Percutaneous Approach (ICD-10-PCS; principal; 2021-10-05)
PROC: 4A023N7 Measurement of Cardiac Sampling and Pressure, Left Heart, Percutaneous Approach (ICD-10-PCS; 2021-10-05)
PROC: B2111ZZ Fluoroscopy of Multiple Coronary Arteries using Low Osmolar Contrast (ICD-10-PCS; 2021-10-05)
PROC: B2151ZZ Fluoroscopy of Left Heart using Low Osmolar Contrast (ICD-10-PCS; 2021-10-05)
PROC: B41G1ZZ Fluoroscopy of Left Lower Extremity Arteries using Low Osmolar Contrast (ICD-10-PCS; 2021-10-05)
PROC: B32T1ZZ Computerized Tomography (CT Scan) of Left Pulmonary Artery using Low Osmolar Contrast (ICD-10-PCS; 2021-10-05)
PROC: B3201ZZ Computerized Tomography (CT Scan) of Thoracic Aorta using Low Osmolar Contrast (ICD-10-PCS; 2021-10-05)
PROC: B32S1ZZ Computerized Tomography (CT Scan) of Right Pulmonary Artery using Low Osmolar Contrast (ICD-10-PCS; 2021-10-05)
PROC: B4201ZZ Computerized Tomography (CT Scan) of Abdominal Aorta using Low Osmolar Contrast (ICD-10-PCS; 2021-10-05)
PROC: B4241ZZ Computerized Tomography (CT Scan) of Superior Mesenteric Artery using Low Osmolar Contrast (ICD-10-PCS; 2021-10-05)
PROC: B4281ZZ Computerized Tomography (CT Scan) of Bilateral Renal Arteries using Low Osmolar Contrast (ICD-10-PCS; 2021-10-05)
PROC: B42C1ZZ Computerized Tomography (CT Scan) of Pelvic Arteries using Low Osmolar Contrast (ICD-10-PCS; 2021-10-05)
PROC: B42H1ZZ Computerized Tomography (CT Scan) of Bilateral Lower Extremity Arteries using Low Osmolar Contrast (ICD-10-PCS; 2021-10-05)
PROC: B4211ZZ Computerized Tomography (CT Scan) of Celiac Artery using Low Osmolar Contrast (ICD-10-PCS; 2021-10-05)
DX: I21.4 Non-ST elevation (NSTEMI) myocardial infarction (principal); I95.9 Hypotension, unspecified; E03.9 Hypothyroidism, unspecified; E78.5 Hyperlipidemia, unspecified; I10 Essential (primary) hypertension; F41.9 Anxiety disorder, unspecified; I25.110 Atherosclerotic heart disease of native coronary artery with unstable angina pectoris; Z20.822 Contact with and (suspected) exposure to COVID-19; T38.1X6A Underdosing of thyroid hormones and substitutes, initial encounter; I97.610 Postprocedural hemorrhage of a circulatory system organ or structure following a cardiac catheterization; Y84.0 Cardiac catheterization as the cause of abnormal reaction of the patient, or of later complication, without mention of misadventure at the time of the procedure; Y92.234 Operating room of hospital as the place of occurrence of the external cause; Y92.89 Other specified places as the place of occurrence of the external cause; I25.2 Old myocardial infarction; Z95.5 Presence of coronary angioplasty implant and graft; Z79.899 Other long term (current) drug therapy; Z79.82 Long term (current) use of aspirin
CPT/HCPCS: 36415; 71275; 74174; 80048; 80053; 80061; 83735; 84443; 84484; 85025; 85610; 85730; 86885; 86900; 86901; 87081; 93005; 93306; 93458; 93922; 93970; 99152; 99153; 99285; A4620; A5120; A6258; A6449; C1751; C1760; C1769; C1874; C1894; C9600; G0378; J1200; J1644; J2250; J2270; J2405; J3010; J3246; J3490; J7030; J7040; Q9967